=== PATIENT | female | born 1960 | race Caucasian/White ===

== ENCOUNTER 2019-10-18 12:43 | Outpatient (CLI) | payer BC, SELFPAY ==
--- NOTE | ~2019-10-18 | MR_ITS ---
EXAMINATION: MR cervical spine wo con DATE: 10/18/2019 13:42 INDICATION: Cervical radiculopathy. TECHNIQUE: Magnetic resonance imaging (MRI) of the cervical spine was performed without intravenous c ontrast. Sequences included sagittal T2-weighted FSE, sagittal T2-weighted FS FSE, sagittal T1-weight ed FSE, axial MERGE, and axial T2-weighted FSE. COMPARISON: None FINDINGS: There is kyphosis of cervical spine. There is 2 mm anterolisthesis of C3 on C4 and 3 mm ret rolisthesis of C5 on C6. Vertebral body heights are normal. There is mildly decreased disc height at C3-C4, moderately decreased disc height at C4-C5, and severely decreased disc height at C5-C6 and C6- C7. The spinal cord signal intensity is normal. The following disc levels are specifically discussed: C2-C3: The disc does not extend beyond the endplate margin. There is no uncovertebral joint osteoarth ritis. There is mild right and severe left facet joint osteoarthritis. There is no neural foraminal s tenosis. There is no central canal stenosis. C3-C4: The disc does not extend beyond the endplate margin. There is moderate right and mild left unc overtebral joint osteoarthritis. There is severe right and mild left facet joint osteoarthritis. Ther e is moderate right neural foraminal stenosis. There is no central canal stenosis. C4-C5: The disc is bulging. There is moderate bilateral uncovertebral joint osteoarthritis. There is moderate right and severe left facet joint osteoarthritis. There is mild bilateral neural foraminal s tenosis. There is mild central canal stenosis. C5-C6: The disc is bulging. There is severe bilateral uncovertebral joint osteoarthritis. There is mo derate left facet joint osteoarthritis. There is mild right and moderate left neural foraminal stenos is. There is mild central canal stenosis. C6-C7: The disc is bulging. There is severe bilateral uncovertebral joint osteoarthritis. There is mi ld right and severe left facet joint osteoarthritis. There is moderate bilateral neural foraminal ivan nosis. There is mild central canal stenosis. C7-T1: The disc does not extend beyond the endplate margin. There is no uncovertebral joint osteoarth ritis. There is moderate right and severe left facet joint osteoarthritis. There is mild left neural foraminal stenosis. There is no central canal stenosis. IMPRESSION: 1. Severe cervical spondylosis. Reviewed, dictated and finalized at location A.
== END 2019-10-18 12:44 | disposition home or self-care (01) ==
LOC: ANHIMG 12:47
PROVIDERS: Visit Provider Psychiatry & Neurology Neurology
DX: M47.22 Other spondylosis with radiculopathy, cervical region (principal)
CPT/HCPCS: 72141

== ENCOUNTER 2020-03-06 09:30 | Outpatient (CLI) | payer BC, SELFPAY ==
--- NOTE | ~2020-03-06 | MR_ITS ---
EXAMINATION: MR thoracic spine wo con EXAM DATE: 03/06/2020 11:04 INDICATION: Gait instability. TECHNIQUE: Multi-sequential, multiplanar MR images of the thoracic spine were obtained without contra st. Sagittal T1, T2, T2 fat saturation, axial T2 weighted images reviewed. There is no prior study for comparison. FINDINGS: There is small midthoracic hemangioma. The vertebral body marrow is otherwise normal in sig nal intensity. The vertebral bodies are aligned in the AP dimension. Vertebral body and disc heights are well-maintained. Paraspinal soft tissue is unremarkable. No thoracic scoliosis. Mild thoracic fac et arthropathy. No thoracic central canal or neural foraminal stenosis. IMPRESSION: 1. Normal thoracic cord signal and morphology. 2. Mild facet arthropathy. 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
--- NOTE | ~2020-03-06 | MR_ITS ---
EXAMINATION: MR lumbar spine wo con DATE: 03/06/2020 11:04 INDICATION: Gait instability. Loss of balance. TECHNIQUE: Magnetic resonance imaging (MRI) of the lumbar spine was performed without intravenous con trast. Sequences included sagittal T2-weighted FSE, sagittal T2-weighted FS FSE, sagittal T1-weighted FSE, and axial T2-weighted FSE. COMPARISON: None FINDINGS: There is 9 degrees dextrocurvature of thoracolumbar spine. There is a Schmorl's node of L1 inferior endplate. There is mildly decreased disc height from T12-L1 through L4-L5. The distal spinal cord signal intensity is normal. The conus medullaris is at T12-L1. The following disc levels are sp ecifically discussed: L1-L2: The disc is bulging. There is mild bilateral facet joint osteoarthritis. There is no neural fo raminal stenosis. There is mild central canal stenosis. L2-L3: The disc is bulging. There is mild bilateral facet joint osteoarthritis. There is mild bilater al neural foraminal stenosis. There is mild central canal stenosis. L3-L4: The disc is bulging and has an annular fissure. There is mild bilateral facet joint osteoarthr itis. There is moderate right and mild left neural foraminal stenosis. There is mild central canal st enosis. L4-L5: The disc is bulging and has an annular fissure. There is mild bilateral facet joint osteoarthr itis. There is moderate bilateral neural foraminal stenosis. There is mild central canal stenosis. L5-S1: The disc is bulging. There is severe bilateral facet joint osteoarthritis. There is mild bilat eral neural foraminal stenosis. There is mild central canal stenosis. IMPRESSION: 1. Moderate lumbar spondylosis. Reviewed, dictated and finalized at location A. 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
== END 2020-03-06 09:31 | disposition home or self-care (01) ==
DX: R26.89 Other abnormalities of gait and mobility (principal); M47.896 Other spondylosis, lumbar region
CPT/HCPCS: 72146; 72148

== ENCOUNTER 2020-11-06 09:01 | Outpatient (CLI) | payer OTHER, SELFPAY ==
--- NOTE | 2020-11-06 | EST_ITS ---
Patient Info Name: Alma Moctezuma Age: 60 years : 1960 Gender: Female Ht: 67 in Wt: 200 lbs BSA: 2.10 m2 HR: 74 bpm BP: 147 / 71 mmHg Heart Rhythm: Sinus Rhythm Exam Date: 11/06/2020 9:57 AM Exam Location: [facility] Patient Status: Outpatient Admit Date: 11/06/2020 Staff Ordering Physician: Wilder Silva MD Clerical Support Specialist: Marti Kemp RDCS Attending Provider: DR. HILL Exercise Technologist: Britney Darby RDCS Exercise Physician: [place] DO Exam Type: CA echo dobutamine stress Study Info Indications - pulmonary hypertension, angina Dobutamine stress echocardiogram is performed. Summary 1. 1. Negative Dobutamine stress test for ischemic ST changes by ECG criteria. 2. 2. Baseline hypertension with hypertensive response to catecholamines. 3. 3. Negative dobutamine echocardiogram for ischemia by wall motion analysis. 4. 4. Patient informed of the above results. Stress Echo Findings Left Ventricle Appropriate increase in LV endocardial thickening with systole. Appropriate augmentation of contractility with systole. No wall motion abnormality. Left Ventricle Normal LV systolic function, no wall motion abnormality. Protocol: Doubutamine Stress ECG Details Stage: REST Duration (min): 0 min : 49 sec [place]: --- Speed (mph): 0.0 Grade (%): 0 HR (bpm): 73 SBP (mmHg): 147 DBP (mmHg): 71 METS: --- Stage: REST Duration (min): 37 min : 4 sec [place]: --- Speed (mph): 0.0 Grade (%): 0 HR (bpm): 73 SBP (mmHg): 147 DBP (mmHg): 71 METS: --- Stage: STAGE 1 Duration (min): 1 min : 0 sec [place]: --- Speed (mph): 0.0 Grade (%): 0 HR (bpm): 88 SBP (mmHg): 147 DBP (mmHg): 71 METS: --- Stage: STAGE 1 Duration (min): 2 min : 0 sec [place]: --- Speed (mph): 0.0 Grade (%): 0 HR (bpm): 78 SBP (mmHg): 147 DBP (mmHg): 71 METS: --- Stage: STAGE 1 Duration (min): 3 min : 0 sec [place]: --- Speed (mph): 0.0 Grade (%): 0 HR (bpm): 85 SBP (mmHg): 174 DBP (mmHg): 69 METS: --- Stage: STAGE 2 Duration (min): 1 min : 0 sec [place]: --- Speed (mph): 0.0 Grade (%): 0 HR (bpm): 90 SBP (mmHg): 174 DBP (mmHg): 69 METS: --- Stage: STAGE 2 Duration (min): 2 min : 0 sec [place]: --- Speed (mph): 0.0 Grade (%): 0 HR (bpm): 94 SBP (mmHg): 174 DBP (mmHg): 69 METS: --- Stage: STAGE 2 Duration (min): 3 min : 0 sec [place]: --- Speed (mph): 0.0 Grade (%): 0 HR (bpm): 107 SBP (mmHg): 174 DBP (mmHg): 69 METS: --- Stage: STAGE 3 Duration (min): 1 min : 0 sec [place]: --- Speed (mph): 0.0 Grade (%): 0 HR (bpm): 118 SBP (mmHg): 174 DBP (mmHg): 69 METS: --- Stage: STAGE 3 Duration (min): 2 min : 0 sec [place]: --- Speed (mph): 0.0 Grade (%): 0 HR (bpm): 124 SBP (mmHg): 230 DBP (mmHg): 50 METS: ---
== END 2020-11-06 09:02 | disposition home or self-care (01) ==
LOC: ANHCARD 09:06
DX: R06.00 Dyspnea, unspecified (principal)
CPT/HCPCS: 93351; J0461; J1250